=== PATIENT | female | born 1955 | race Caucasian/White ===

== ENCOUNTER 2019-05-04 10:37 | Outpatient (REF) | payer BC, SELFPAY ==
--- NOTE | 2019-05-04 10:00 | PAPFT_PTH ---
PATIENT: Melissa uTcker LOC: [facility] U#:[id number] AGE/SX: 63/F ROOM: RE05/04/[address]: RODRIGO Malone : 1955 BED: DIS: 05/04/2019 SPEC #: [id number] RECD: 05/04/19 12:43 STATUS: SILKEBrianne REQ #: [id number] MADELYN: 05/04/19 10:[address]: Poornima Bowser DEPT: [facility] Cytology RECD BY: Nay Garcias ENTERED: 05/04/19 12:44 SP TYPE: PAPFT OTHR DR: Isabell Thomason, PhD NEUROSURGICAL PHYSICIAN ASSISTANT Tissues: 1 - CX/ENDOCX FOR PAP SMEARS Procedures: PAP THIN PREP/UVM Screening HPV DNA PROBE Comments: [id number]
== END 2019-05-04 10:57 ==
LOC: LBN 10:37
PROVIDERS: PCP Nurse Practitioner; Visit Provider Nurse Practitioner Family
DX: Z12.4 Encounter for screening for malignant neoplasm of cervix (principal); Z11.51 Encounter for screening for human papillomavirus (HPV)
CPT/HCPCS: 88142; 87624

== ENCOUNTER 2019-05-25 08:27 | Outpatient (CLI) | payer BC, SELFPAY ==
[2019-05-25 10:33] LABS: Calculated LDL 140 mg/dL (<100); Cholesterol 225 mg/dL (<200); Glucose 86 mg/dL (74-106); HDL Cholesterol 77 mg/dL (40-60); Triglyceride 43 mg/dL (<150)
== END 2019-05-25 08:47 ==
PROVIDERS: PCP Nurse Practitioner; Visit Provider Nurse Practitioner
DX: Z13.220 Encounter for screening for lipoid disorders (principal); Z13.1 Encounter for screening for diabetes mellitus
CPT/HCPCS: 36415; 80061; 82947

== ENCOUNTER 2019-11-06 09:03 | Outpatient (CLI) | payer BC, SELFPAY ==
[2019-11-12 22:25] LABS: SARS-CoV-2 RNA Undetected (Undetected); SARS-CoV-2 Specimen Source Nasopharynx
== END 2019-11-06 09:23 ==
PROVIDERS: PCP Nurse Practitioner; Visit Provider Nurse Practitioner
DX: Z11.59 Encounter for screening for other viral diseases (principal)
CPT/HCPCS: U0003

== ENCOUNTER 2021-03-08 14:09 | Outpatient (CLI) | payer BC, SELFPAY ==
[2021-03-08 12:52] LABS: ESR 29 mm/hr (0-30)
[2021-03-08 12:53] LABS: Abs Immature Grans 0.23 10^3/uL (0.0-0.06); Absolute Basophil Count 0.09 10^3/uL (0.0-0.2); Absolute Eosinophil Count 0.01 10^3/uL (0.0-0.7); Absolute Lymphocyte Count 0.49 10^3/uL (1.2-3.4); Absolute Monocyte Count 0.78 10^3/uL (0.1-0.8); Basophils % 0.7; Eosinophils % 0.1; HCT 41.5 % (36.0-46.0); HGB 13.7 g/dL (11.2-15.7); Immature Grans % 1.7; Lymphocytes % 3.6; MCH 30.6 pg (27.0-33.0); MCV 92.8 fL (80-95); MPV 9.8 fL (8.0-11.0); Monocytes % 5.8; Neutrophils % 88.1; Nucleated RBC 0 %; Platelet Count 593 10^3/uL (130-400); RBC 4.47 10^6/uL (3.93-5.22); RDW-SD 41.4 fL; WBC 13.49 10^3/uL (4.4-10.8)
[2021-03-08 12:54] LABS: Absolute Neutrophil Count 11.88 10^3/uL (1.2-6.7)
[2021-03-08 13:31] LABS: Bilirubin Negative (Negative); Blood Moderate (Negative); Clarity Sl Cloudy (Clear); Glucose Negative (Negative); Ketones 80 mg/dL (Negative); Leukocyte Esterase Trace (Negative); Nitrite Positive (Negative); Specific Gravity 1.025 (1.005-1.025)
[2021-03-08 13:35] LABS: Bacteria Many HPF (Negative); C & S Indicated? No/Sq. Contamination; Casts Negative LPF (Negative); Crystals Negative HPF (Negative); Epithelial Cells Many HPF (Negative); Mucus Trace (Negative); WBC >50 HPF (0-5)
[2021-03-08 13:41] LABS: ALT 14 U/L (14-59); AST 25 U/L (15-37); Albumin 2.2 g/dL (3.4-5.0); Alkaline Phosphatase 171 U/L (46-116); Anion Gap 12.5 mmol/L (3-11); BUN 16 mg/dL (7-18); Bilirubin, Total 0.8 mg/dL (0.2-1.0); CO2 25.5 mmol/L (21.0-32.0); Calcium 8.6 mg/dL (8.5-10.1); Chloride 95 mmol/L (98-107); Estimated GFR 55.82 (mL/min/1.73m2); Glucose 135 mg/dL (74-106); Magnesium 2.5 mg/dL (1.8-2.4); Potassium 4.5 mmol/L (3.5-5.1); Sodium 133 mmol/L (136-145); TSH (W/Ref FT4) 1.51 uIU/mL (0.36-3.74); Total Protein 6.9 g/dL (6.4-8.2)
[2021-03-08 14:04] LABS: C-Reactive Protein > 25.00 mg/dL (0.0-0.3)
== END 2021-03-08 14:10 | disposition home or self-care (01) ==
LOC: LBO 14:12
PROVIDERS: PCP Nurse Practitioner; Visit Provider Family Medicine
DX: E03.9 Hypothyroidism, unspecified (principal); F50.9 Eating disorder, unspecified; R55 Syncope and collapse
CPT/HCPCS: 36410; 80053; 85652; 87040; 81003; 81015; 83735; 84443; 85025; 86140

== ENCOUNTER 2021-03-10 08:53 | Outpatient (REF) | payer BC, SELFPAY ==
[2021-03-10 09:01] LABS: Source Nasal/Nares
[2021-03-10 10:06] LABS: COVID-19 PCR Negative (Negative)
== END 2021-03-10 08:54 | disposition home or self-care (01) ==
LOC: LBN 08:53
PROVIDERS: PCP Nurse Practitioner; Visit Provider Urology
DX: Z20.822 Contact with and (suspected) exposure to COVID-19 (principal); R50.9 Fever, unspecified; R42 Dizziness and giddiness
CPT/HCPCS: 87635

== ENCOUNTER 2021-03-10 10:31 | Day surgery (SDC) | payer BC, SELFPAY ==
[2021-03-10] VITALS (8 sets, daily range): BP systolic 63–123; BP diastolic 34–66; PULSE 72–105; RESP 14–20; TEMP 35.9–36.4; O2SAT 92–99; BMI 18.7
--- NOTE | 2021-03-10 09:38 | W.ANESPRE ---
General Info Date of Service Date Performed: 03/10/21 Height: 5 ft 2 in Weight: 46.5 kg Body Mass Index (BMI): 18.7 Surgical Procedure: Operation Date: 03/10/21 11:10 Proposed Procedures Side Surgeon p Cystoscopy/Laser/Retrograde/Ureteroscopy Left Kaz Ross MD Meds Allergies and Home Medications Allergies Allergy/AdvReac Type Severity Reaction Status Date / Time venom-honey bee Allergy Severe Swelling/Ed Verified 03/08/21 10:44 [bee venom (honey bee)] blossom Home Medication Medication Instructions Recorded epinephrine 05/19/14 Bi-Est/progesterone See Rx Instructions TOPICAL 08/04/20 DIRECTED #1 ml sulfamethoxazole 800 1 tab PO BID 7 Days #14 tab 03/09/21 mg-trimethoprim 160 mg tablet ascorbate calcium (vitamin C) 500 500 mg PO DAILY 03/10/21 mg tablet Current Visit Medications: Current Medications Generic Name Dose Route Start Last Admin Trade Name Freq PRN Reason Stop Dose Admin Ringer's Solution 1,000 mls @ 80 mls/hr 03/10/21 06:00 IV 04/09/21 23:59 INFUSION MICHELLE Cefazolin Sodium/Dextrose 1 gm in 50 mls @ 100 mls/hr 03/10/21 06:00 Ancef Duplex IVPB 03/10/21 23:59 PREOP MICHELLE IV Miscellaneous Supplies 1 each 03/10/21 06:00 Iv Access IV 04/09/21 23:59 DIRECTED MICHELLE Sodium Chloride 0 ml 03/10/21 06:00 Normal Saline Flush 10 Ml Syr IV 04/09/21 23:59 PRN PRN Sodium Chloride 0 ml 03/10/21 06:00 Normal Saline 10 Ml Vial IJ 04/09/21 23:59 DIRECTED PRN Sterile Water 0 ml 03/10/21 06:00 Water,Injection,Sterile 10 Ml Vial IJ 04/09/21 23:59 DIRECTED PRN PFSH Active Problems Active Problems: Problem Status Onset Code Hydronephrosis due to obstruction of ureter N13.1 Osteoporosis M81.0 Medical History Active Problem List Osteoporosis (Chronic) Hydronephrosis due to obstruction of ureter (Acute) Medical History Gastric paresis Tobacco Smoking/Tobacco Use Status: Never Passive smoking exposure: Yes Alcohol Alcohol Intake: current Alcohol intake frequency: a few times a month Substance Use Substance use: Never Substance use type: former substance user and marijuana Prental History History 0 Para Hx # Term Pregnancies Multiple births Hx # Pregnancies Ectopic pregnancies AB induced Hx Number of Living Children AB spontaneous Vital Signs and Lab Results Lab Results Blood Type / Crossmatch: No Data to Display Complete Blood Count: White Blood Count 13.49 10^3/uL (4.4-10.8) H 03/08/21 12:30 03/08/21 Red Blood Count 4.47 10^6/uL (3.93-5.22) 03/08/21 12:30 03/08/21 Hemoglobin 13.7 g/dL (11.2-15.7) 03/08/21 12:30 03/08/21 Hematocrit 41.5 % (36.0-46.0) 03/08/21 12:30 03/08/21 Platelet Count 593 10^3/uL (130-400) H 03/08/21 12:30 03/08/21 Complete Metabolic Panel: Sodium Level 133 mmol/L (136-145) L 03/08/21 12:30 03/08/21 Potassium Level 4.5 mmol/L (3.5-5.1) 03/08/21 12:30 03/08/21 Chloride Level 95 mmol/L (98-107) L 03/08/21 12:30 03/08/21 Carbon Dioxide Level 25.5 mmol/L (21.0-32.0) 03/08/21 12:30 03/08/21 Blood Urea Nitrogen 16 mg/dL (7-18) 03/08/21 12:30 03/08/21 Creatinine 1.0 mg/dL (0.55-1.02) 03/08/21 12:30 03/08/21 Estimated GFR/1.73 m2 55.82 (mL/min/1.73m2) 03/08/21 12:30 03/08/21 Magnesium Level 2.5 mg/dL (1.8-2.4) H 03/08/21 12:30 03/08/21 Calcium Level 8.6 mg/dL (8.5-10.1) 03/08/21 12:30 03/08/21 Albumin 2.2 g/dL (3.4-5.0) L 03/08/21 12:30 03/08/21 Glucose Level 135 mg/dL (74-106) H 03/08/21 12:30 03/08/21 C-Reactive Protein > 25.00 mg/dL (0.0-0.3) H 03/08/21 12:30 03/08/21 Liver Function Panel: Alanine Aminotransferase (ALT/SGPT) 14 U/L (14-59) 03/08/21 12:30 03/08/21 Aspartate Amino Transf (AST/SGOT) 25 U/L (15-37) 03/08/21 12:30 03/08/21 Coagulation Panel: No Data to Display Cardiac Panel: No Data to Display Arterial Blood Gas: No Data to Display Venous Blood Gas: No Data to Display Pancreas Panel: No Data to Display Thyroid Panel: Thyroid Stimulating Hormone (TSH) 1.51 uIU/mL (0.36-3.74) 03/08/21 12:30 03/08/21 Infectious Disease: Coronavirus (COVID-19)(PCR) Negative (Negative) 03/10/21 08:45 03/10/21 Coronavirus 2019 Source Nasal/Nares 03/10/21 08:45 03/10/21 Blood Cultures: No Data to Display Toxicology Panel: No Data to Display Anesthesia Assessment and Plan Anesthesia History Personal History: No History of Anesthesia Complications Family History: No Family History of Anesthesia Complications Exercise Tolerance Exercise Tolerance: Metabolic Equivalents>4 Pertinent Negatives Pertinent Negatives: No Symptoms of GERD, No Major Cardiovascular Symptoms or Complaints, No Major Pulmonary Symptoms or Complaints and No History of CVA/TIA Cardiac & Pulmonary Exam Cardiac Exam: Normal S1/S2 Heart Sounds Pulmonary Exam: Clear Bilateral Breath Sounds Implantable Cardiac Device Does patient have a Pacemaker or an ICD?: No Airway Exam Known Difficult Airway: No Mallampati Class: 3 Mouth Opening: Narrow (< 3cm) Thyromental Distance: Greater than 3 cm Neck Range of Motion: Full ROM Neck Circumference: Normal Teeth Condition: Generalized Poor Dentition ASA Classification ASA Score: ASA 2 Emergency Case?: Yes NPO Status NPO Status: NPO Clears >2 hours, Solids >8 hours Anesthesia Plan Resuscitation Status: Full Code Anesthesia Technique: General Anesthesia Airway Planned: Natural Airway Monitors Used: Standard Monitors
[2021-03-10] MEDS: Lactated Ringers 1,000 ML 80 ML IV (11:05)
[2021-03-10] MEDS: ceFAZolin 1 GM/50 ML BAG IVPB (11:35)
[2021-03-10] MEDS: Omnipaque 300 MG/ML 50 ML BTL (12:16)
[2021-03-10] MEDS: Lidocaine 2% Jelly 6 ML SYR (12:17)
--- NOTE | 2021-03-10 12:22 | DI.RAD_ITS ---
Exam(s) XR RETROGRADE IN OR EXAM: XR RETROGRADE IN OR CLINICAL HISTORY: retrograde/stent placement. TECHNIQUE: 2D and realtime digital imaging was performed. COMPARISON: No exams were available for comparison FINDINGS: Fluoroscopy was provided for Dr. Cody hughes performing retrograde examination. A hard copy image shows placement of a left ureteral stent. Fluoro time 11.9 seconds. Please see procedure note for details. RADIATION DOSE DELIVERED: Ka,r=1.3 mGy
--- NOTE | 2021-03-10 12:23 | W.PM.DSUDISC ---
Discharge Plan Disposition Patient Disposition: HOME Condition: Stable Discharge Details Reason For Visit: (L) HYDRONEPHROSIS Attending Provider: Kaz Ross Primary Care Provider: Isabell Thomason Home Meds and New Rx's Prescriptions: New tramadol 50 mg tablet 50 mg PO Q6H PRN (Reason: pain) Qty: 12 RF: 0 No Action ascorbate calcium (vitamin C) 500 mg tablet 500 mg PO DAILY RF: 0 Bi-Est/progesterone cream See Rx Instructions mg topical DIRECTED Qty: 1 RF: 6 sulfamethoxazole-trimethoprim 800-160 mg tablet 1 tab PO BID 7 Days Qty: 14 RF: 0 epinephrine 0.3 MG/SYR auto-injector RF: 0 Discharge Instructions Additional Instructions: start taking sulfamethoxazole/trimethoprim prescribed by PCP yesterday no need to strain urine pt has stent with string still attached - end of string tucked into vaginal cavity Followup 1 week for stent removal and 4 to 6 weeks for followup renal ultrasound/stone analysis prescription for tramdol sent to pharmacy Activity:: Activity as Tolerated Shower/Bathe:: 24 hours Diet:: As Tolerated Discharge Orders Discharge Orders: Discharge Order (Routine); Ordered 03/10/21 Ordered By: Kaz Ross DS: Diagnosis Discharge Diagnosis (1) Hydronephrosis due to obstruction of ureter: Status: Acute
[2021-03-10] MEDS: ePHEDrine 50 MG/ML VIAL IVP (12:44)
--- NOTE | 2021-03-10 12:52 | ROE_ITS ---
Date of service: 03/10/21 Time of Service: 12:52 Operative Note Operative Note DATE OF PROCEDURE: 03/10/21 PRE-OP DIAGNOSIS: Left hydronephrosis Left ureteral stone POST-OP DIAGNOSIS: same PROCEDURE: cystoscopy, left retrograde pyelogram, left ureteroscopy, holmium laser lithotripsy, extraction of stone fragments, insert left ureteral stent SURGEON: Kaz Ross ANESTHESIA TYPE: Local By Surgeon and General:No Airway Refer to Anesthesia Record ESTIMATED BLOOD LOSS: 20 PATHOLOGY: other (stone for chemical analysis) COMPLICATIONS: None Patient was transported to: PACU Patient's condition: stable Implants: 6 Northern Irish by 22 to 30 cm ureteral stent with string attached Indications: This is a 65-year-old woman who has had a 2-week history of pain and fevers. She just sought attention 2 days ago. She had negative blood cultures but an elevated white count with a left shift. She had some elevated liver function tests, so an abdominal ultrasound was performed. Left hydronephrosis with an apparent left distal ureteral stone was identified. Because of the concern for an infected left kidney behind the stone, she is brought to the operating room urgently for cystoscopy and stent placement. Findings: obstructing left ureteral stone at pelvic brim Procedure Description: Patient was brought to the operating room on 03/10/2021. After successful induction of general anesthesia without intubation, she was placed in the dorsal lithotomy position. Her genitalia was prepped and draped. She was given a preoperative dose of IV antibiotics. 2 Percent Xylocaine jelly was instilled into the urethra to act as a local anesthetic. A 22 [place] Irish rigid cystoscope was passed through the urethra into the bladder. The bladder was inspected with a 30 degree lens. The ureteral orifices appeared normal in configuration and location. The left orifice was cannulated with a 6 [place] Irish access catheter. Retrograde pyelogram was obtained by injecting Omnipaque through the access catheter under fluorosco pic guidance. A radio opaque filling defect (seen on KUB) was proven to be a stone in the distal ureter. I then passed a Glidewire through the access catheter and maneuvered the wire up the remainder of the ureter. We removed the access catheter leaving the wire in place. The semirigid ureteroscope was then introduced and advanced up the left ureter until the stone was visualized. The stone was then treated with the holmium laser. We used a 365 ?m fiber and power settings of 800 with a rate of 8. The stone fragmented quite nicely and I was then able to grasp the stone fragments using a Maite stone basket. Once all visible fragments were removed, we passed a 6 [place] Irish variable length stent over the indwelling guidewire. The proximal end of the stent was curled in the renal pelvis and the distal and was curled in the bladder. The positioning of the stent was confirmed fluoroscopically and cystoscopically. We left the safety string in place and brought the string through the urethra. We tucked the safety string back up into the patient's vaginal cavity. This stent will be removed in about 1 week. Cloudy urine was then seen draining from the left kidney. The patient tolerated the procedure well with no complications. All stone fragments that were removed were sent to pathology for chemical analysis.
--- NOTE | 2021-03-10 13:35 | W.ANESPOSTOP ---
Postoperative Evaluation Date, Time and Location Date Performed: 03/10/21 Time Performed: 13:35 Patient Location: Day Surgery Unit Vital Signs Most Recent Imported Vital Signs: Most Recent Vital Signs Temp Pulse Resp BP Pulse Ox 36.4 C L 101 H 18 93/36 L 97 03/10/21 12:56 03/10/21 12:56 03/10/21 12:56 03/10/21 12:56 03/10/21 12:56 Pain Score Most Recent Pain Score: Most Recent Pain Score Pain Level 0 03/10/21 12:56 Assessment Mental Status: Awake (Alert & Oriented to Patient Baseline) Airway and Respiratory Function: Patent airway with normal (patient baseline) respiratory exam Cardiovascular Function: Hemodynamically Stable Hydration Status: Adequately Hydrated Nausea & Vomiting: No Nausea or Vomiting Pain: Pt. Denies Any Pain Peripheral Nerve Block: Patient did not receive a nerve block
[2021-03-14 19:42] LABS: Source: Left Ureter
== END 2021-03-10 14:28 | disposition home or self-care (01) ==
PROVIDERS: PCP Nurse Practitioner; Visit Provider Urology
PROC: 0TC48ZZ Extirpation of Matter from Left Kidney Pelvis, Via Natural or Artificial Opening Endoscopic (ICD-10-PCS; CPT 52356; principal; 2021-03-10 11:00)
DX: N13.2 Hydronephrosis with renal and ureteral calculous obstruction (principal)
CPT/HCPCS: 52356; 74420; 82365; J0690; J1100; J1885; J2250; J2405; J3010; Q9967

== ENCOUNTER → 2021-10-24 00:54 | Outpatient (CLI) | payer MEDICARE, OTHER, SELFPAY ==
--- NOTE | 2021-10-24 07:30 | DI.US_ITS ---
Exam(s) US RENAL EXAM: US RENAL CLINICAL HISTORY: monitor known stones,kidney stones,n20.0 TECHNIQUE: Ultrasound of both kidneys performed using standard protocol. COMPARISON: US US RENAL from 04/24/2021 FINDINGS: Right kidney measures 10 cm length and left kidney measures 9 cm length. Both kidneys contain tapan us nonobstructive calculi, the largest in the right kidney measuring 4 millimeters and the largest in the left kidney measuring 7 millimeters (inferior pole left kidney). There is no hydronephrosis nor hydroureter. No cysts. No solid masses in either kidney. URINARY BLADDER: Prevoid volume is only 4 cc Cannot assess for bladder mass given the only 4 cc in the bladder lumen. Ureterovesical jets: Cannot identify due to the bladder being empty IMPRESSION: 1. Bilateral nonobstructive renal calculi. Largest is in the lower pole left kidney and measures ap proximately 7 millimeters. No hydronephrosis nor hydroureter. 2. Bladder inadequately filled for study. DATA REPOSITORY:
== END ==
PROVIDERS: PCP Nurse Practitioner; Visit Provider Urology
DX: N20.0 Calculus of kidney (principal)
CPT/HCPCS: 76770

== ENCOUNTER → 2022-04-12 01:07 | Outpatient (CLI) | payer MEDICARE, SELFPAY ==
--- NOTE | 2022-04-12 08:00 | DI.DEXA_ITS ---
Exam(s) XR DEXA BONE DENSITY W/WO STEW EXAM: XR DEXA BONE DENSITY W/WO STEW CLINICAL HISTORY: osteoporosis, m81.0 TECHNIQUE: [employer] C densitometer analysis of left hip, lumbar spine and left forearm. COMPARISON: CR THORACIC SPINE from 03/19/2012 FINDINGS: Lateral view of the thoracic and lumbar spine shows no evidence of compression fractures however the upper and mid thoracic vertebral bodies are not optimally profiled.. Bone mineral density measurements of the lumbar spine correspond to a total T-score of -3.8, in the osteoporotic range. Bone mineral density measurements of the left hip correspond to a total T-score of -2.8. The femora l neck T-score is -3.0, in the osteoporotic range.. The left forearm bone mineral density measurements correspond to a T-score of the distal 3rd of -3.6 , in the osteoporotic range.. IMPRESSION: Osteoporosis of the lumbar spine, left hip and left forearm.
--- NOTE | 2022-04-12 08:00 | DI.MAMMO_ITS ---
Exam(s) MAMMO SCREENING EXAM: MAMMO SCREENING CLINICAL HISTORY: screening,z12.39 TECHNIQUE: Mammograms were interpreted according to the usual protocol including computer analysis w [employer] CAD system, tomosynthesis and C-view imaging. COMPARISON: 2013 FINDINGS: The breasts are composed of scattered fibroglandular densities, Breast Density category B. No suspicious masses or suspicious microcalcifications are seen. No skin thickening or abnormal axillary lymph nodes are seen. There has been no significant change from prior exams. IMPRESSION: BI-RADS Category 1, Negative mammogram Yearly screening mammography is recommended. Breast Density - Category B, scattered fibroglandular densities. A negative radiographic report should not delay biopsy if a dominant or clinically suspicious mass is present. Up to ten percent of cancers are not identified on mammography. A negative report may reinforce clinical impression. Adenosis and dense breasts may obscure an underlying neoplasm. False positive reports average 6 to 10%. Patient will receive a letter notifying them of these results.
== END ==
PROVIDERS: PCP Nurse Practitioner Family; Visit Provider Nurse Practitioner
DX: Z12.31 Encounter for screening mammogram for malignant neoplasm of breast (principal); M81.0 Age-related osteoporosis without current pathological fracture; Z13.820 Encounter for screening for osteoporosis
CPT/HCPCS: 77063; 77067; 77080

== ENCOUNTER 2022-10-25 01:54 | Outpatient (CLI) | payer MEDICARE, SELFPAY ==
--- NOTE | 2022-10-25 07:30 | DI.US_ITS ---
Exam(s) US RENAL EXAM: US RENAL CLINICAL HISTORY: monitor known stones, denise kidney stones, N20.0. TECHNIQUE: Campuzano scale, color and spectral Doppler were used. COMPARISON: US US RENAL from 10/24/2021 FINDINGS: Renal size in cm: Right: 10.6 left: 8.3 Echogenicity: Normal Hydronephrosis: No Cyst or mass: No Nephrolithiasis: No definite stones on the right. Question of tiny echogenic foci. Multiple echogenic foci noted in the left kidney, the largest measuring 10 millimeters, at the lower pole. 5 millimeters stone near upper pole. 4 millimeter stone in mid left kidney. Bladder:Empty, not evaluated. IMPRESSION: Question of a tiny right renal stones. 10 millimeters stone lower pole left kidney. 5 millimeter stone near upper pole. Additional midpole stone 4 millimeters. DATA REPOSITORY:
== END 2022-10-25 02:14 ==
LOC: DI 01:54
PROVIDERS: PCP Family Medicine; Visit Provider Urology
DX: N20.0 Calculus of kidney (principal)
CPT/HCPCS: 76770

== ENCOUNTER → 2022-10-29 09:40 | Outpatient (BNVA) | payer MEDICARE, SELFPAY | PROVIDERS: PCP Family Medicine; Referring Provider Family Medicine; Visit Provider Urology | DX: N20.0 Calculus of kidney (principal) | CPT/HCPCS: 99213 ==

== ENCOUNTER 2022-12-21 13:06 | Outpatient (CLI) | payer MEDICARE, SELFPAY ==
[2022-12-21 12:43] LABS: ALT 7 U/L (14-59); AST 19 U/L (15-37); Albumin 3.6 g/dL (3.4-5.0); Alkaline Phosphatase 132 U/L (46-116); Anion Gap 7.5 mmol/L (3-11); BUN 15 mg/dL (7-18); Bilirubin, Total 0.6 mg/dL (0.2-1.0); CO2 29.5 mmol/L (21.0-32.0); CREATININE 0.9 mg/dL (0.55-1.02); Calcium 9.3 mg/dL (8.5-10.1); Chloride 106 mmol/L (98-107); Estimated GFR 70.51 (mL/min/1.73m2); Glucose 90 mg/dL (74-106); PHOSPHORUS 4.1 mg/dL (2.6-4.7); Potassium 3.9 mmol/L (3.5-5.1); Sodium 143 mmol/L (136-145); TSH (W/Ref FT4) 1.72 uIU/mL (0.36-3.74); Total Protein 7.1 g/dL (6.4-8.2)
[2022-12-21 12:56] LABS: Vitamin D 25 Total 46.2 ng/mL (30-100)
[2022-12-22 08:46] LABS: Magnesium Random Urine 12.8 mg/dL (See Note)
[2022-12-24 09:12] LABS: Parathyroid Hormone,Intact 36 pg/mL (19-88)
== END 2022-12-21 13:07 | disposition home or self-care (01) ==
LOC: LBO 13:06
PROVIDERS: PCP Family Medicine; Visit Provider Family Medicine
DX: N18.9 Chronic kidney disease, unspecified
CPT/HCPCS: 36415; 80053; 82306; 83735; 82340; 83970; 84100; 84443

== ENCOUNTER → 2023-10-29 10:02 | Outpatient (BNVA) | payer MEDICARE, SELFPAY | PROVIDERS: PCP Family Medicine; Referring Provider Family Medicine; Visit Provider Urology | DX: N20.0 Calculus of kidney (principal) | CPT/HCPCS: 99213 ==

== ENCOUNTER → 2023-11-18 01:02 | Outpatient (CLI) | payer MEDICARE, SELFPAY ==
--- NOTE | 2023-11-18 07:15 | DI.US_ITS ---
Exam(s) US RENAL EXAM: US RENAL CLINICAL HISTORY: monitor known stones,BILAT KIDNEY STONES,N20.0. TECHNIQUE: Campuzano scale, color and spectral Doppler were used. COMPARISON: US US RENAL from 10/25/2022 FINDINGS: Right kidney: 10.6cm Echogenicity: Normal Hydronephrosis: No Cyst or mass: No Nephrolithiasis: Multiple echogenic foci are demonstrated measuring between 2 and 3 millimeters in s ize. Left kidney: 8.3cm Echogenicity: Normal Hydronephrosis: No Cyst or mass: No Nephrolithiasis: Multiple echogenic foci ranging from 2 through 7 millimeters in size. The largest a t the lower pole. Bladder:Normal. Prevoid vol:34 cc Postvoid vol:2 cc IMPRESSION: bilateral nephrolithiasis. Largest stone lower pole left kidney 7 millimeters. DATA REPOSITORY:
== END ==
PROVIDERS: PCP Family Medicine; Visit Provider Urology
DX: N20.0 Calculus of kidney (principal)
CPT/HCPCS: 76770